=== PATIENT | female | born 1975 | race Caucasian/White ===

== ENCOUNTER 2019-09-12 01:07 | Emergency (ER) | payer BC ==
--- NOTE | 2019-09-12 01:38 | EDM.PDOC ---
ED HPI GENERAL MEDICAL PROBLEM - General Chief Complaint: Back Pain or Injury Stated Complaint: MUSCLE SPASMS LEFT SIDE. LOWER BACK PAIN Time Seen by Provider: 09/12/19 01:33 Source of Information: Reports: Patient History Limitations: Reports: No Limitations - History of Present Illness INITIAL COMMENTS - FREE TEXT/NARRATIVE: sudden onset left LBP with radiation to left jaw & face feeling like the time she was Dx with brain tumour. though at that time it was her leg and not back that hurt. tumour Dx via MRI. denies h/o recent injury to area no h/o K-stone or UTI Sx. feels like a muscle spasms. Middle Back Pain Score (Numeric/FACES): 2 - Related Data Allergies Allergy/AdvReac Type Severity Reaction Status Date / Time No Known Allergies Allergy Verified 09/12/19 01:12 Home Meds: Home Meds Sertraline HCl 50 mg PO DAILY 09/12/19 [History] levETIRAcetam [Levetiracetam] 1 tab PO BID 09/12/19 [History] Past Medical History Neurological History: Reports: Other (See Below) Other Neuro History: brain tumor - Past Surgical History Neurological Surgical History: Reports: Other (See Below) Other Neurological Surgeries/Procedures: brain tumor removal 2017 Social & Family History - Family History Family Medical History: Noncontributory - Tobacco Use Smoking Status *Q: Never Smoker Second Hand Smoke Exposure: No - Caffeine Use Caffeine Use: Reports: Coffee, Soda - Recreational Drug Use Recreational Drug Use: No ED ROS GENERAL - Review of Systems Review Of Systems: Comprehensive ROS is negative, except as noted in HPI. ED EXAM,LOWER BACK PAIN/INJURY - Physical Exam Exam: See Below Exam Limited By: No Limitations General Appearance: Alert, WD/WN, Mild Distress, Other (discomfort) Ears: Hearing Grossly Normal Throat/Mouth: Normal Voice, No Airway Compromise Head: Atraumatic Neck: Non-Tender, Full Range of Motion Respiratory/Chest: No Respiratory Distress Cardiovascular: Regular Rate, Rhythm GI/Abdominal: Soft, Non-Tender Back Exam: Muscle Spasm, Paraspinal Tenderness, Other (left [id number] region with radiation up left neck-jaw region. gait limited to discomfort). No : Decreased Range of Motion Neurological: Alert, Oriented x 3 Psychiatric: Other (upset) Skin Exam: Warm, Dry, Normal Color Lymphatic: No Adenopathy Course - Vital Signs Last Recorded V/S: Last Vital Signs Temp 36.9 C 09/12/19 01:13 Pulse 88 09/12/19 01:13 Resp 16 09/12/19 01:13 BP 148/81 H 09/12/19 01:13 Pulse Ox 100 09/12/19 01:13 - Orders/Labs/Meds Orders: Active Orders 24 hr Category Date Time Status Abdomen Pelvis wo Cont [CT] Urgent Exams 09/12/19 02:05 Taken Head wo Cont [CT] Urgent Exams 09/12/19 02:03 Taken Labs: Laboratory Tests 09/12/19 09/12/19 Range/Units 01:40 01:40 WBC 9.7 (5.0-10.0) 10^3/uL RBC 4.31 (4.2-5.4) 10^6/uL Hgb 8.6 L (12.0-16.0) g/dL Hct 29.1 L (37.0-47.0) % MCV 67.5 L (80-100) fL MCH 20.0 L (27.0-34.0) pg MCHC 29.6 L (33.0-35.0) g/dL Plt Count 344 (150-450) 10^3/uL Neut % (Auto) 50.3 (42.2-75.2) % Lymph % (Auto) 36.7 (20.5-50.1) % Morrison % (Auto) 8.8 H (2-8) % Eos % (Auto) 3.5 H (1.0-3.0) % Baso % (Auto) 0.7 (0.0-1.0) % Sodium 136 (135-145) mmol/L Potassium 4.1 (3.6-5.0) mmol/L Chloride 104 (101-111) mmol/L Carbon Dioxide 23.0 (21.0-31.0) mmol/L Anion Gap 13.1 BUN 13 (7-18) mg/dL Creatinine 0.5 L (0.6-1.3) mg/dL Est Cr Clr Drug Dosing 115.93 mL/min Estimated GFR (MDRD) > 60 BUN/Creatinine Ratio 26.00 Glucose 99 (74-105) mg/dL Calcium 9.3 (8.4-10.2) mg/dl Total Bilirubin 0.3 (0.2-1.0) mg/dL AST 18 (10-42) IU/L ALT 19 (10-60) IU/L Alkaline Phosphatase 84 (42-121) IU/L Total Protein 8.1 (6.7-8.2) g/dl Albumin 4.2 (3.2-5.5) g/dl Globulin 3.9 Albumin/Globulin Ratio 1.08 HCG, Qual Negative Meds: Medications Discontinued Medications Generic Name Dose Route Start Last Admin Trade Name Bozena PRN Reason Stop Dose Admin Hydrocodone Bitart/Acetaminophen 1 tab 09/12/19 04:22 [place] 325-10 Mg PO 09/12/19 04:23 ONETIME ONE - Re-Assessments/Exams Free Text/Narrative Re-Assessment/Exam: 09/12/19 04:23 re-exam; pt states left back feeling slightly better and the radiating pain going up left side is gone. 09/12/19 04:32 results discussed with pt Departure - Departure Time of Disposition: 04:33 Disposition: Home, Self-Care 01 Condition: Good Clinical Impression: Thoracolumbar back pain, History of brain cancer - Discharge Information Forms: ED Department Discharge Additional Instructions: 1) rest and avoid bending lifting straining 2) try ice or heat to sore areas 3) see clinic for MRI SCAN OF HEAD brain cancer symptoms returns or persist Sepsis Event Note - Evaluation Sepsis Screening Result: No Definite Risk - Focused Exam Vital Signs: Vital Signs Temp Pulse Resp BP Pulse Ox 09/12/19 01:13 36.9 C 88 16 148/81 H 100 Date Exam was Performed: 09/12/19 Time Exam was Performed: 04:32 - My Orders Last 24 Hours: My Active Orders 09/12/19 02:03 Head wo Cont [CT] Urgent 09/12/19 02:05 Abdomen Pelvis wo Cont [CT] Urgent - Assessment/Plan Last 24 Hours: My Active Orders 09/12/19 02:03 Head wo Cont [CT] Urgent 09/12/19 02:05 Abdomen Pelvis wo Cont [CT] Urgent
[2019-09-12 02:03] LABS: ANION GAP 13.1; CHLORIDE,CL 104 mmol/L (101-111); SODIUM,NA 136 mmol/L (135-145)
[2019-09-12] MEDS ORDERED: Acetaminophen/HYDROcodone 325-10 MG Tab PO ONE (04:22)
== END 2019-09-12 04:38 | disposition home or self-care (01) ==
LOC: DL.ED 01:07
DX: M54.6 Pain in thoracic spine (principal); M54.5 Low back pain; Z85.841 Personal history of malignant neoplasm of brain
CPT/HCPCS: 36415; 70450; 74176; 80053; 84703; 85025; 99284; A9270

== ENCOUNTER 2024-09-26 05:31 | Day surgery (SDC) | payer BC ==
[2024-09-26] MEDS ORDERED: Midazolam 1 MG/ML 2 ML SDV IV ONE (06:00)
[2024-09-26] MEDS ORDERED: fentaNYL 100 MCG/2 ML SDV ONE (06:00)
[2024-09-26] MEDS ORDERED: Midazolam 1 MG/ML 2 ML SDV ONE (06:00)
[2024-09-26] MEDS ORDERED: fentaNYL 100 MCG/2 ML SDV IV ONE (06:00)
[2024-09-26] MEDS: Dextrose 5%-0.45% NaCl 1,000 ML IV SCH (06:03)
[2024-09-26] MEDS: Midazolam 1 MG/ML 2 ML SDV IV ONE ×6 (06:24→06:32)
[2024-09-26] MEDS: fentaNYL 100 MCG/2 ML SDV IV ONE ×3 (06:24→06:33)
== END 2024-09-26 08:36 | disposition home or self-care (01) ==
LOC: DL.ENDO 05:31
PROVIDERS: ATTEND Internal Medicine Gastroenterology
DX: Z12.11 Encounter for screening for malignant neoplasm of colon (principal); K57.30 Diverticulosis of large intestine without perforation or abscess without bleeding
CPT/HCPCS: 45378; J2250; J3010; J7799

== ENCOUNTER 2025-05-05 17:49 | Emergency (ER) | payer BC | END 2025-05-05 18:19 | disposition home or self-care (01) | LOC: DL.ED 17:49 | DX: H00.015 Hordeolum externum left lower eyelid (principal); Z79.899 Other long term (current) drug therapy | CPT/HCPCS: 99283 ==